=== PATIENT | male | born 1960 | race Caucasian/White ===

== ENCOUNTER 2023-06-22 13:55 | Emergency (ER) | payer OTHER, SELFPAY ==
--- NOTE | ~2023-06-22 | CT_ITS ---
EXAMINATION: CT abdomen pelvis w con DATE: 06/22/2023 15:19 INDICATION: Low abdominal pain. TECHNIQUE: Computed tomography (CT) of the abdomen and pelvis was performed with 100 mL Omnipaque 350 intravenous contrast. Automated exposure control and iterative reconstruction technique were employe d. The dose-length product was 594.13 mGy-cm. COMPARISON: None. FINDINGS: The visualized portions of the lung bases demonstrate a 7 mm nodule in right lower lobe. No pleural effusion. The heart size is normal. No pericardial effusion. The liver, spleen, gallbladder, pancreas, adrenal glands, and kidneys are normal. There is an umbilical hernia containing fat. There are scattered diverticula in the colon. There is wall thickening in the sigmoid colon with surroundi ng fat stranding, consistent with diverticulitis. There are no dilated loops of bowel. The appendix i s normal. There is a right inguinal hernia containing fat. There are no pathologically enlarged lymph nodes. There is no free intraperitoneal fluid. There is mild thoracic spondylosis and mild lumbar sp ondylosis. There is mild chronic anterior wedging of T11 vertebral body. IMPRESSION: 1. Acute sigmoid diverticulitis. No perforation or abscess. 2. Umbilical hernia containing fat. Right inguinal hernia containing fat. 3. 7 mm pulmonary nodule, probably benign. Noncontrast low-dose chest CT is recommended in 6-12 month s. Reviewed, dictated and finalized at location [facility]. [facility] [employer] IMPRESSION: 1. Acute sigmoid diverticulitis. No perforation or abscess. 2. Umbilical hernia containing fat. Right inguinal hernia containing fat. 3. 7 mm pulmonary nodule, probably benign. Noncontrast low-dose chest CT is rec ommended in 6-12 months.
[2023-06-22 13:56] VITALS: BP 142/82; PULSE 80; RESP 16; TEMP 36.1; O2SAT 99
[2023-06-22 14:09] LABS: Basophils Percent Auto 0.3 % (0.2-1.2); Eosinophils Absolute Auto 0.2 K/mm3 (0-0.3); Eosinophils Percent Auto 1.3 % (0-4.4); Hematocrit 47.1 % (42.0-52.0); Hemoglobin 14.9 g/dL (14.0-18.0); Immature Granulocyte Absolute 0.04 K/mm3 (0.00-0.031); Immature Granulocyte Percent A 0.3 % (0-0.5); Lymphocytes Absolute Auto 1.95 K/mm3 (0.9-3.2); Lymphocytes Percent Auto 16.4 % (18.3-44.2); Mean Corpuscular HGB Conc 31.6 g/dl (32-36); Mean Corpuscular Hemoglobin 28.3 pg (26-34); Mean Corpuscular Volume 89.5 fl (80-100); Mean Platelet Volume 10.8 fl (7.4-10.4); Monocytes Absolute Auto 1.1 K/mm3 (0.1-0.6); Monocytes Percent Auto 9.3 % (2.6-8.5); Neutrophils Absolute Auto 8.6 K/mm3 (1.3-6.7); Neutrophils Percent Auto 72.4 % (45.5-73.1); Platelet Count Result 267 k/mm3 (150-375); Red Blood Count 5.26 M/mm3 (4.6-6.20); Red Cell Distribution Width 13.7 % (11.5-14.5); White Blood Count 11.9 K/mm3 (4.5-10.0)
[2023-06-22 14:22] LABS: Alanine Aminotransferase 28 U/L (6-50); Albumin Level 4.8 g/dL (3.5-5.1); Alkaline Phosphatase 95 U/L (38-126); Anion Gap 8 mmol/L (8-16); Aspartate Amino Transferase 30 U/L (17-59); Bilirubin,Total 0.8 mg/dL (0.2-1.3); Blood Urea Nitrogen 21 mg/dL (9-20); Calcium 9.3 mg/dL (8.4-10.2); Carbon Dioxide 31 mmol/L (22-30); Chloride 101 mmol/L (98-107); Estimated CRCL calculation 48 ml/min; Estimated Glomerular Filt Rate 51; Glucose 104 mg/dL (65-110); Lipase 101 U/L (23-300); Potassium 3.9 mmol/L (3.4-5.0); Sodium 140 mmol/L (137-145)
[2023-06-22 14:29] VITALS: BP 144/93; PULSE 81; RESP 17; O2SAT 98
[2023-06-22 14:49] LABS: Appearance Urine Clear (Clear); Bacteria Urine None Seen /hpf; Bilirubin Urine Negative (Negative); Blood Urine 1+ (Negative); Color Urine Yellow (Yellow); Glucose Urine UA Negative (Negative); Ketones Urine Trace mg/dL (Negative); Leukocyte Esterase Ur Negative LEU/UL (Negative); Nitrate Urine Negative (Negative); Non Pathogenic Casts 0-2; Protein Urine Trace mg/dL (Negative); Specific Grav Ur 1.028 (1.001-1.035); Squamous Epithelial Cell Urine None seen /hpf (Few); WBC Urine 0-5 /hpf
[2023-06-22 14:50] LABS: Add Urine Microscopic? YES
--- NOTE | 2023-06-22 15:06 | ED.ABDPAIN ---
HPI - Abdominal Pain General Chief Complaint: Abdominal Pain Stated Complaint: abd pain Time Seen by Provider: 06/22/23 14:27 History of Present Illness HPI narrative: 62-year-old male reports for evaluation for right lower quadrant and left lower quadrant abdominal pain for the past 3 days. Patient states the abdominal pain is better after he has a bowel movement and worse with movement. He states he has not had a full bowel movement in the past few days but has had small caliber bowel movements. His last bowel movement was at 3 AM this morning. He reports some nausea but no emesis. Denies dysuria, hematuria, urinary frequency or urgency, melena or hematochezia, chest pain or shortness of breath, fever, cough or congestion. Patient does note he has had an umbilical hernia for many years but has never been evaluated by a provider for this. He denies pain overlying the hernia. Related Data Allergies Allergy/AdvReac Type Severity Reaction Status Date / Time No Known Allergies Allergy Mild Verified 06/22/23 14:00 Review of Systems Review of Systems: CONSTITUTIONAL: Denies fever, chills EYES: Denies visual changes, redness, or discharge. ENT: Denies rhinorrhea, congestion, sore throat, or otalgia. CARDIOVASCULAR: Denies chest pain, palpitations, or edema. RESPIRATORY: Denies cough or dyspnea. GASTROINTESTINAL: See HPI GENITOURINARY: Denies dysuria or hematuria. SKIN: Denies rash or itching. MUSCULOSKELETAL: Denies back pain, joint pain, or myalgia. NEUROLOGIC: Denies headache, numbness, dizziness, or weakness. PSYCHIATRIC: Denies anxiety or depression. Exam Narrative: GENERAL: Well-appearing, in no acute distress. Patient resting comfortably in exam bed. He is pleasant and conversational. HEAD: Normocephalic EYES: PERRLA ENT: Nares clear. Mucous membranes moist. Oropharynx without tonsillar hypertrophy exudate or other lesions. NECK: Supple. CHEST: No respiratory distress. Clear to auscultation, no adventitious breath sounds. HEART: Regular rate and rhythm. No murmur heard. Normal peripheral pulses. ABDOMEN: Normal active bowel sounds. Abdomen soft with tenderness and guarding in the right lower and left lower quadrants. No rebound or rigidity. There is a umbilical hernia present with a mild amount of overlying erythema which is easily reducible on exam. No tenderness to umbilicus. No CVA tenderness. EXTREMITIES: Normal range of motion. No edema. SKIN: Warm, dry, no rash. NEURO: No focal deficits. Alert and oriented x3. PSYCH: Normal mood and affect. Course Vital Signs Vital signs: Vital Signs Temperature 97 F L 06/22/23 13:56 Pulse Rate 80 06/22/23 13:56 Respiratory Rate 16 06/22/23 13:56 Blood Pressure 142/82 H 06/22/23 13:56 Pulse Oximetry 99 06/22/23 13:56 Temperature 97 F L 06/22/23 13:56 Pulse Rate 81 06/22/23 14:29 Respiratory Rate 17 06/22/23 14:29 Blood Pressure 144/93 H 06/22/23 14:29 Pulse Oximetry 98 06/22/23 14:29 MDM - Abdominal Pain MDM Narrative Medical decision making narrative: 62-year-old male reports for evaluation for right lower quadrant and left lower quadrant abdominal pain for the past 3 days. See HPI for further history. Vitals significant for mildly elevated blood pressure, otherwise unremarkable. Exam is significant for the above. CBC with leukocytosis of 11.9, no left shift. Chemistries show a BUN of 21 and creatinine 1.4, no prior for comparison. Normal LFTs. Normal lipase. Urinalysis with trace ketones and 1+ hematuria. CT abdomen pelvis shows acute sigmoid diverticulitis with no perforation or abscess. There is an umbilical hernia containing fat and right inguinal hernia containing fat. Umbilical hernia on exam is easily reduced and nontender. There is also 7 mm pulmonary nodule, probably benign. Noncontrast low-dose chest CT is recommended for 6 to 12 months. Patient received IV fluids, morphine and Zofran with improvem
[2023-06-22] MEDS: SODIUM CHLORIDE 0.9% IV 1,000 ML 999 ML IV CONT (15:32)
[2023-06-22] MEDS: MORPHINE SULFATE (*CRX) 4 MG/ML INJ IV PUSH (15:32)
[2023-06-22] MEDS: ONDANSETRON INJ 4 MG/2 ML VIAL IV PUSH (15:32)
[2023-06-22] MEDS: AMOXICILLIN/CLAVULANATE K 875-125 MG TAB 1 TABLET PO (16:04)
[2023-06-22 16:14] VITALS: BP 134/88; PULSE 73; RESP 16; O2SAT 99
== END 2023-06-22 16:16 | disposition home or self-care (01) ==
PROVIDERS: Emergency Medicine; Emergency Provider Physician Assistant; PCP Internal Medicine
DX: K57.32 Diverticulitis of large intestine without perforation or abscess without bleeding (principal); K42.9 Umbilical hernia without obstruction or gangrene; K40.90 Unilateral inguinal hernia, without obstruction or gangrene, not specified as recurrent; R91.1 Solitary pulmonary nodule
CPT/HCPCS: 36415; 74177; 80053; 81001; 83690; 85025; 96374; 96375; 99284; A9270; J2270; J2405; J7030; Q9967

== ENCOUNTER 2023-09-06 08:05 | Day surgery (SDC) | payer OTHER, SELFPAY ==
[2023-08-22 13:40] VITALS: BMI 31.2
[2023-08-23 10:50] VITALS: BMI 28.9
[2023-09-06 09:05] VITALS: BP 138/105; PULSE 72; RESP 20; TEMP 36.8; O2SAT 100
[2023-09-06] MEDS: LACTATED RINGERS 1,000 ML 150 ML IV CONT (09:13)
[2023-09-06 09:14] VITALS: BMI 27.2
--- NOTE | 2023-09-06 09:55 | PM.HPGS ---
History of Present Illness History of Present Illness Consent: Risks, benefits, and alternatives have been discussed and questions answered. Patient agrees to proceed with procedure. Chief complaint: Diverticulitis Narrative: Errol Navarrete is a 63 year old male presents for colonoscopy. Patient has a history of right lower quadrant abdominal pain in June. A CT scan suggested diverticulitis. Patient was treated with a round of antibiotics. He denies a fever. He has normal bowel movements. Patient denies any bleeding. He continues to have vague right lower quadrant discomfort which persists. Patient presents today for colonoscopy. Review of Systems Review of Systems: All systems reviewed & are unremarkable except as noted in HPI and below PMFSH Social History Social History Smoking status: Never smoker Alcohol intake: never Substance use: never Living arrangements: with family Spiritual care concerns: No Meds Home Medications and Allergies Home Medications Medication Instructions Recorded Confirmed Type sodium,potassium,mag sulfates 17.5 See Rx Instructions PO .COMPLEX 08/22/23 09/06/23 Rx gram-3.13 gram-1.6 gram oral soln #354 mL (Suprep Bowel Prep Kit) senna leaf extract 8.7 mg chewable 8.7 mg PO DAILY 08/23/23 09/06/23 History tablet (Senokot) Allergies Allergy/AdvReac Type Severity Reaction Status Date / Time No Known Allergies Allergy Mild Verified 09/06/23 09:03 Vital Signs Vital Signs - 24 hr 09/06/23 09:05 Temperature 98.2 F Pulse Rate 72 Respiratory Rate 20 Blood Pressure 138/105 H Pulse Oximetry 100 Oxygen Delivery Room Air Exam Narrative: Physical exam reveals patient to be alert. Vital signs stable. HEENT glenna below. Patient is anicteric. Lungs are clear to auscultation and to percussion. Heart is without murmur or extra sounds. Abdomen bowel sounds are present soft , no obvious tenderness nor mass in the abdomen. With no organomegaly. Digital external rectal exam normal. Assessment and Plan Assessment and plan (1) Diverticulitis: Code(s): K57.92 - Diverticulitis of intestine, part unspecified, without perforation or abscess without bleeding Status: Acute Assessment and Plan: Patient with the episode of apparent diverticulitis. This was suggested by CT scan in June 2023. Does have ongoing vague right lower quadrant pain. Plan for colonoscopy at this time. High-fiber diet advised otherwise.
[2023-09-06] MEDS: SIMETHICONE ORAL SUSPENSION 20 MG/0.3 ML 30 ML BOTTLE 0.6 ML IRRIGATION (10:42)
[2023-09-06 10:53] VITALS: BP 99/70; PULSE 78; RESP 16; O2SAT 96
[2023-09-06 11:03] VITALS: BP 105/78; PULSE 64; RESP 16; O2SAT 97
--- NOTE | 2023-09-06 11:05 | WPDANESPN ---
Anes - Prog Note Post-Op Date/Time: 09/06/23 11:05 Cardiovascular status: normal Respiratory status: normal Airway patency: baseline Mental status: baseline Post-Op hydration status: normal Vital Signs: Last Vital Signs Temp 36.8 C 09/06/23 09:05 Pulse 72 09/06/23 09:05 Resp 20 09/06/23 09:05 BP 138/105 H 09/06/23 09:05 Pulse Ox 100 09/06/23 09:05 O2 Del Method Room Air 09/06/23 09:05 Pain Score (VAS): 0/10 I/O: Intake & Output 09/05/23 09/06/23 09/06/23 23:59 07:59 15:59 Intake Total 200 Balance 200 Patient Feedback: Patient satisfied with anesthetic care.
[2023-09-06 11:13] VITALS: BP 122/78; PULSE 63; RESP 16; O2SAT 100
== END 2023-09-06 11:33 | disposition home or self-care (01) ==
PROVIDERS: PCP Family Medicine; Visit Provider Internal Medicine Gastroenterology
PROC: 0DJD8ZZ Inspection of Lower Intestinal Tract, Via Natural or Artificial Opening Endoscopic (ICD-10-PCS; CPT 45378; principal; 2023-09-06 10:30)
DX: K57.30 Diverticulosis of large intestine without perforation or abscess without bleeding (principal); K64.8 Other hemorrhoids
CPT/HCPCS: 45378